=== PATIENT | male | born 1960 ===

== ENCOUNTER 2018-05-28 08:14 | Outpatient (CLI) | payer MEDICARE, OTHER | END 2018-05-28 08:15 | disposition home or self-care (01) | LOC: C.LAB 08:14 | DX: E11.65 Type 2 diabetes mellitus with hyperglycemia (principal); E78.9 Disorder of lipoprotein metabolism, unspecified ==

== ENCOUNTER 2018-09-19 08:50 | Outpatient (CLI) | payer MEDICARE, OTHER | END 2018-09-19 08:51 | disposition home or self-care (01) | LOC: C.LAB 08:50 | DX: E11.65 Type 2 diabetes mellitus with hyperglycemia (principal); E78.2 Mixed hyperlipidemia; E03.9 Hypothyroidism, unspecified ==